=== PATIENT | female | born 2000 | race Two or more races ===

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

== ENCOUNTER 2024-03-12 09:45 | Emergency (ER) | payer MEDICAID ==
[~2024-03-12] VITALS: Ht 157.5 cm; Wt 94.3 kg
[2024-03-12 10:46] LABS: Urine Bacteria None Seen /hpf (None Seen)
[2024-03-12 10:57] LABS: Urine Blood Negative /uL (Negative); Urine Clarity Clear (Clear); Urine Color Colorless (Yellow); Urine Protein, UAD Negative (Negative); Urine Specific Gravity 1.006 (1.001-1.035); Urine Urobilinogen Normal (Negative); Urine WBC 3 /hpf (0 - 5); Urine pH 6.5 (5.0-9.0)
[2024-03-12 12:50] LABS: Basophils # (auto) 0 10 ^3/uL (0-0.2); Basophils % (auto) 0.2 % (0.0-2.0); Eosinophils # (auto) 0 10 ^3/uL (0-0.8); Eosinophils % (auto) 0.4 % (0.0-7.0); Hematocrit 37.2 % (36.0-46.0); Lymphocytes # (auto) 2.2 10 ^3/uL (0.4-5.4); Lymphocytes % (auto) 24.6 % (10.0-50.0); Mean Corpuscular Hgb Conc. 32.3 g/dL (32.0-36.0); Mean Corpuscular Volume 77.5 fL (80.0-100.0); Monocytes # (auto) 0.4 10 ^3/uL (0-1.3); Monocytes % (auto) 4.4 % (0.0-12.0); Neutrophils # (auto) 6.3 10 ^3/uL (1.6-8.6); Neutrophils % (auto) 70.4 % (37.0-80.0); Red Cell Distribution Width 15.5 % (11.8-14.3); White Blood Cell 8.9 10^3/uL (4.4-10.8)
[2024-03-12 13:05] LABS: Chloride 106 mmol/L (98-107); Potassium 4.1 mmol/L (3.5-5.1); Sodium 138 mmol/L (136-145)
[2024-03-12 13:06] LABS: Anion Gap 8 (5-15); Calcium 9.6 mg/dL (8.5-10.1); Carbon Dioxide 24 mmol/L (20-30)
[2024-03-12 13:11] LABS: Blood Urea Nitrogen 6 mg/dL (9-23); Glucose 85 mg/dL (74-106)
[2024-03-12] MEDS ORDERED: CEPH250C PO (13:20)
[2024-03-12 13:30] VITALS: BP 124/68; PULSE 61; RESP 18; TEMP 98.7; O2SAT 100
== END 2024-03-12 13:31 | disposition home or self-care (01) ==
LOC: ER 09:45
DX: N39.0 Urinary tract infection, site not specified (principal)
CPT/HCPCS: 36415; 80048; 81001; 81025; 85025

== ENCOUNTER 2025-04-25 04:50 | Emergency (ER) | payer BC, MEDICAID ==
[~2025-04-25] VITALS: Ht 157.5 cm; Wt 104.0 kg
[~2025-04-25 04:50] MED LIST: CEPH250C PO
--- NOTE | 2025-04-25 06:32 | ED.PDOC ---
History of Present Illness HPI Comments 24 year old female presents to the ED with a chief complaint of anxiety onset today (04/25/25). Patient states she woke up about 3 hours ago, experiencing anxiety, shortness of breath, chest pain. Upon ED arrival, patient noticed symptoms had a slight improvement. Patient also states she has been under stress recently. Denies any PMHx as well as nausea, vomiting, diarrhea, abdominal pain, headache, SI, HI, hallucinations, fevers, chills, dysuria. No other symptoms or modifying factors present at this time. Chief Complaint: Anxiety Time Seen by MD: 06:20 Primary Care Provider: KERI Reviewed Notes: Medications, Allergies Allergies: Coded Allergies: NO KNOWN ALLERGIES (Unverified , 06/27/19) Home Meds Active Scripts Lorazepam (Ativan) 0.5 Mg Tab, 1 TAB PO DAILY for 3 Days, #3 TAB Prov:ROQUE HERNANDEZ MD 04/25/25 Cephalexin (KEFLEX CAPSULE) 250 Mg Cp, 250 MG PO QID for 5 Days, #20 BOTTLE Prov:ROQUE HERNANDEZ MD 03/12/24 Information Source: Patient, Relative (Mother) Mode of Arrival: Ambulatory Severity: Moderate Timing: Hours Duration: Since onset Prehospital treatment: None Past Medical History PAST MEDICAL HISTORY: Denies Surgical History: Denies all surgeries 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: No 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 History Family History Family History: Unknown Social History Smoker: Non-Smoker Alcohol: Denies ETOH Use Drugs: Denies Drug Use Lives In: Home Constitutional: denies: chills, diaphoresis, fatigue, fever, malaise, sweats, weakness, others EENTM: denies: blurred vision, double vision, ear bleeding, ear discharge, ear drainage, ear pain, ear ringing, eye pain, eye redness, hearing loss, mouth pain, mouth swelling, nasal discharge, nose bleeding, nose congestion, nose pain, photophobia, tearing, throat pain, throat swelling, voice changes, others Respiratory: reports: shortness of breath; denies: cough, hemoptysis, orthopnea, SOB at rest, SOB with excertion, stridor, wheezing, others Cardiovascular: reports: chest pain; denies: dizzy spells, diaphoresis, Dyspnea on exertion, edema, irregular heart beat, left arm pain, lightheadedness, palpitations, PND, syncope, others Gastrointestinal: denies: abdomen distended, abdominal pain, blood streaked bowels, constipated, diarrhea, dysphagia, difficulty swallowing, hematemesis, melena, nausea, poor appetite, poor fluid intake, rectal bleeding, rectal pain, vomiting, others Genitourinary: denies: abnormal vagina bleeding, burning, dyspareunia, dysuria, flank pain, frequency, hematuria, incontinence, pain, , vagina discharge, urgency, others Neurological: denies: dizziness, fainting, headache, left sided numbness, left sided weakness, numbness, paresthesia, pre-existing deficit, right sided num bness, right sided weakness, seizure, speech problems, tingling, tremors, weakness, others Musculoskeletal: denies: back pain, gout, joint pain, joint swelling, muscle pain, muscle stiffness, neck pain, others Integumetry: denies: bruises, change in color, change in hair/nails, dryness, laceration, lesions, lumps, rash, wounds, others Allergic/Immunocompromised: denies: Difficulty Healing, Frequent Infections, Hives, Itching, others Hematologic/Lymphatic: denies: anemia, blood clots, easy bleeding, easy bruising, swollen glands, others Endocrine: denies: excessive hunger, excessive sweating, excessive thirst, excessive urination, flushing, intolerance to cold, intolerance to heat, unexplained weight gain, unexplained weight loss, others Psychiatric: reports: anxiety; denies: bipolar disorder, depression, hopeless, panic disorder, schizophrenia, sleepless, suicidal, others All Other Systems: Reviewed and Negative Physical Exam General Appearance: Moderate Distress, Normal HEENT: Normal ENT Inspection, Pharynx Normal, TMs Normal Neck: Full Range of Motion, Non-Tender, Normal, Normal Inspection Respiratory: Chest Non-Tender, Lungs Clear, No Accessory Muscle Use, No Respiratory Distress, Normal Breath Sounds Cardiovascular: No Edema, No JVD, No Murmur, No Gallop, Normal Peripheral Pulses, Regular Rate/Rhythm Breast Exam: Deferred Gastrointestinal: No Organomegaly, Non Tender, No Pulsatile Mass, Normal Bowel Sounds, Soft Genitalia: Deferred Pelvic: Deferred Rectal: Deferred Extremities: No calf tenderness, Normal capillary refill, Normal inspection, Normal range of motion, Non-tender, No pedal edema Musculoskeletal : Apperance: Normal Neurologic: Alert, human resources office manager II-XII nml as Tested, No Motor Deficits, Normal Affect, Normal Mood, No Sensory Deficits Cerebellar Function: Normal Reflexes: Normal Skin: Dry, Normal Color, Warm Peripheral Pulses: 3+ Radial (R), 3+ Radial (L) Lymphatic: No Adenopathy Was a procedure done? Was a procedure done?: No EKG EKG : Pulse Rate (adult): 82 Cardiac Rhythm: NSR Differential Dx Considerations may include: Anxiety Stress induced X-Ray, Labs, Meds, VS Vital Signs Date Time Temp Pulse Resp B/P (MAP) Pulse Ox O2 Delivery O2 Flow Rate FiO2 04/25/25 05:09 98.1 67 18 138/96 (110) 98 98.1 04/25/25 05:09 67 04/25/25 04:57 82 Lab Test 04/25/25 05:08 Range/Units Troponin I High Sensitivity < 3 L </=34 ng/L Patient alert. No sign of distress. Cardiac marker within normal limits. Vitals stable. Answering questions. [place]ristine physical examination. EKG reviewed does not show any acute changes. Explained to the patient that she will need further workup for possible thyroid. No immediate lab work needed for thyroid function. She does have a lot of stress in her life. Was given prescription of Ativan. No risk factors for coronary artery disease. Explained to the patient. Was told to follow up with her primary care physician. Was told to come back if there is any problem. Time of 1ST Reevaluation: 06:50 Reevaluation 1ST: Improved Patient Education/Counseling: Diagnosis, Treatment, Prognosis Family Education/Counseling: Diagnosis, Treatment, Prognosis SEPSIS Sepsis Screen Date sepsis recognized/suspect: Apr 25, 2025 Time Sepsis recognized/suspect: 0450 Recent Procedure: No On Antibiotic Therapy: No Respiratory Rate >20: No Heart Rate >90: No Temp<36 C (96.8 F) or >38.3 C: No SBP <90 or MAP <65 mmHG: No New Acute Mental Status Change: No Is the patient on CPAP, BIPAP,: No Physician Orders Electrocardigram (04/25/25 05:01) Urinalysis (04/25/25 06:28) Vital Signs Date Time Temp Pulse Resp B/P (MAP) Pulse Ox O2 Delivery O2 Flow Rate FiO2 04/25/25 05:09 98.1 67 18 138/96 (110) 98 98.1 04/25/25 05:09 67 04/25/25 04:57 82 Departure 1 Departure Time of Disposition: 06:55 Impression: Primary Impression: Anxiety Disposition: 01 HOME / SELF CARE / HOMELESS Condition: Good e-Prescriptions Lorazepam (Ativan) 0.5 Mg Tab 1 TAB PO DAILY for 3 Days, #3 TAB Prov: ROQUE HERNANDEZ MD 04/25/25 Discharged With: Self Critical Care Note Critical Care Time?: No Stability Stability form required: No Heart Score Heart Score: Heart Score Response (Comments) Value History Slightly Suspicious 0 EKG Normal 0 Age <45 0 Risk Factors No known risk factors 0 Troponin Normal limit 0 Total 0 I personally scribed for ROQUE HERNANDEZ MD ([email or web address]) on 04/25/25 at 06:32. Electronically submitted by Aaliyah Cloud ([email or web address]). ROQUE HERNANDEZ MD Apr 25, 2025 06:32
[2025-04-25] MEDS ORDERED: LORA-655 PO (06:56)
[2025-04-25 07:07] VITALS: BP 131/73; PULSE 74; RESP 18; TEMP 98.4; O2SAT 97
[2025-04-25 07:10] LABS: Urine Bacteria None Seen /hpf (None Seen)
[2025-04-25 07:17] LABS: Urine Blood Negative /uL (Negative); Urine Clarity Clear (Clear); Urine Color Colorless (Yellow); Urine Protein, UAD Negative (Negative); Urine Specific Gravity 1.008 (1.001-1.035); Urine Squamous Epithelial Cell FEW /hpf (<5); Urine Urobilinogen Normal (Negative); Urine WBC < 1 /HPF (0-5); Urine pH 6.5 (5.0-9.0)
--- NOTE | 2025-04-26 04:39 | ECG ---
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
--- NOTE | 2025-04-26 14:45 | ECG ---
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
== END 2025-04-25 07:16 | disposition home or self-care (01) ==
LOC: ER 04:50
DX: F41.9 Anxiety disorder, unspecified (principal); Z79.899 Other long term (current) drug therapy
CPT/HCPCS: 36415; 81001; 84484; 93005